=== PATIENT | female | born 1955 | race Caucasian/White ===

== ENCOUNTER 2016-12-09 08:00 | Day surgery (SDC) | payer BC ==
[~2016-12-09] VITALS: Ht 154.9 cm; Wt 72.9 kg
[~2016-12-09 08:00] MED LIST: LEVOFLOXACIN 500 mg IVPB 500 MG in D5W 100 ML IV ONE; LIDOCAINE 1% (10mg/ml) 2ml SDV INJ ONE; LISI-621 PO; LR 1,000 ML IV SCH; SIMV40TA5 PO
--- OUTSIDE RECORDS SUMMARY | 2016-12-09 08:03 | XMS REPORT | Summary of Care ---
Author Author Sue Simpson D.O. Organization Unknown Address [address], [place] [id number] Phone Unavailable Care Team Providers Care Welding Setter Name Role Phone Sue Simpson D.O. Unavailable Unavailable Sue Simpson PP Unavailable Unavailable Unavailable Functional Status Functional Status Health Issues* Name Dates Details Functional status health issues are not documented Status: Cognitive Status Health Issues* Name Dates Details Cognitive status health issues are not documented Status: Problems Name Dates Details Metatarsalgia (726.70, M77.40) Status: Active Impaired fasting glucose (790.21, R73.01) Status: Active Motion sickness (994.6, T75.3XXA) Status: Active Hypercholesterolemia (272.0, E78.0) Status: Active Seborrheic keratosis (702.19, L82.1) Status: Active Right knee sprain (844.9, S83.91XA) Status: Active Increased urinary frequency (788.41, R35.0) Status: Active Urinary tract infection (599.0, N39.0) Status: Active Medications Name Dates Details Simvastatin 40 MG Oral Tablet TAKE 1 TABLET DAILY. Quantity: 90 Sue Simpson.Sree* Started 07-Nov-2013 ActiveCiprofloxacin HCl - 250 MG Oral Tablet TAKE 1 TABLET EVERY 12 HOURS DAILY. * Quantity: 14 Refills: 0 Sue Simpson.Sia.* Started 29-May-2014 Active Allergies and Adverse Reactions Name Dates Details No Known Drug Allergies Status: Active Past Medical History Name Dates Details Metatarsalgia (726.70, M77.40) Status: Active Procedures Procedure Dates Details History of Complete Colonoscopy For Polyp Removal Procedures not documented Immunization Name Dates Details Diphtheria-Tetanus Toxoids 6.7-5 LFU/0.5ML Intramuscular Injectable Administered on:31-Oct-2013 Tdap (Adacel) Lot #: [id number] Administered on:31-Oct-2013 Social History Smoking Status* Unknown if ever smoked Vital Signs Date Test Result Details 28-Sep-2014 10:51 Temperature 97.5 f Status: Weight 151 lb Status: Body Mass Index Calculated 28.53 kg/m2 Status: Body Surface Area Calculated 1.68 m2 Status: Results Date Description Value Details 28-Sep-2014 10:14 Urinalysis, reflex to Micro and Culture ([facility]) 8016 pH 6.0 (Better) Range: 5.0-7.5 SP GRAVITY 1.015 (Better) Range: 1.010-1.030 APPEARANCE Cloudy (Abnormal) Range: Clear COLOR Yellow (Better) Range: Straw-Yellow PROTEIN Negative mg/dL (Better) Range: Negative-Trace GLUCOSE Negative mg/dL (Better) Range: Negative KETONES Negative mg/dL (Better) Range: Negative BILIRUBIN Negative (Better) Range: Negative BLOOD 1+ (Abnormal) Range: Negative UROBIL 0.2 EU/dL (Better) Range: 0.2-1.0 NITRITE Negative (Better) Range: Negative LEUKOCYTES 3+ (Abnormal) Range: Negative 11:19 Urine Microscopic UMIC WBC 21-50 /HPF (Abnormal) Range: 0-5 Comments: Specimen referred to Microbiology for Culture----- RBC 0-2 /HPF (Better) Range: 0-2 BACTERIA 1+ /HPF (Abnormal) Range: Negative-Trace EPITH 0-2 /HPF (Better) Range: 0-10 30-Sep-2014 08:10 URINE CULTURE 5010 *URINE CULTURE Microbiology results (Better) Comments: URINE SOURCE: Clean CatchCOLONY COUNT>100,000 cfu/ml. of a Gram Neg. Bacilli.RESULT: Escherichia coli (Isolate 1)Antibiotic Sensitivity Isolate 1 ---------Ampicillin <=8 SAmpicillin/Sulbactam <=8/4 SAugmentin <=8/4 SCefazolin <=8 SCefepime <=8 SCefoxitin <=8 SCeftazidime <=1 SCeftriaxone <=8 SCefuroxime <=4 SCiprofloxacin <=1 SErtapenem <=1 SGentamicin <=4 SImipenem <=4 SLevofloxacin <=2 SMeropenem <=4 SNitrofurantoin <=32 SPiperacillin/Tazobactam <=16 STetracycline <=4 STobramycin <=4 STrimeth/Sulfa < =2/38 SS=Sensitive, I=Intermediate, R=Resistant, ESBL=Extended spectrum beta- lactamase enzymes produced, [place]=Beta-lactamase positive, IB=Inducible Beta- lactamase enzymes known to be present.----- Plan of Care Planned Observations* Name Dates Details Planned Goals not documented Goal Planned Encounters* Appointment; Provider: Sue Simpson On 31-Oct-2014 08:45 * Appointment; Provider: Williams Alfaro On 17-Nov-2013 09:30 Instructions * Instructions not documented Encounters Appointment; Sue Simpson Encounter Diagnosis: Problem not documented On 28-Sep-2014 10:45 Appointment; Sue Simpson Encounter Diagnosis: Problem not documented On 19-Jun-2014 15:30 Appointment; Sue Simpson Encounter Diagnosis: Problem not documented On 29-May-2014 16:15 Appointment; Sue Simpson Encounter Diagnosis: Problem not documented On 09-May-2014 08:45 Appointment; Román Rose Encounter Diagnosis: Problem not documented On 09:00 Appointment; Román Rose Encounter Diagnosis: Problem not documented On 08:00 Appointment; Román Rose Encounter Diagnosis: Problem not documented On 09:00 Appointment; Román Rose Encounter Diagnosis: Problem not documented On 08:30 Appointment; Román Rose Encounter Diagnosis: Problem not documented On 11:30 Appointment; Román Rose Encounter Diagnosis: Problem not documented On 08:00 Appointment; Sue Simpson Encounter Diagnosis: Problem not documented On 09:15 Appointment; Seu Simpson Encounter Diagnosis: Problem not documented On 07-Feb-2014 08:30 Appointment; Williams Alfaro Encounter Diagnosis: Problem not documented On 23-Nov-2013 09:30 Appointment; Williams Alfaro Encounter Diagnosis: Problem not documented On 17-Nov-2013 08:30 Appointment; Dillan Garduno Encounter Diagnosis: Problem not documented On 17-Nov-2013 07:15 Appointment; Sue Simpson Encounter Diagnosis: Problem not documented On 07-Nov-2013 08:30 Appointment; Sue Simpson Encounter Diagnosis: Problem not documented On 31-Oct-2013 08:45 Appointment; Susy Neff Encounter Diagnosis: Problem not documented On 27-Oct-2013 08:50
--- OUTSIDE RECORDS SUMMARY | 2016-12-09 08:03 | XMS REPORT ---
Author Author GENERATED, SYSTEM Organization Unknown Address Unknown Phone Unavailable Care Team Providers Care Mold Shaker Name Role Phone DO NOLASCO ROBERT PP Unavailable Reason For Visit Chief Complaint LT EYE PAIN Social History Functional Status Vital Signs Results Problems Encounter Diagnosis No relevant problems exist. Encounters Encounter Diagnosis No relevant problems exist. Plan of Care Procedures No relevant procedures performed. Immunizations No immunizations administered or ordered. Hospital Course Hospital Discharge Instructions Allergies, Adverse Reactions, Alerts * No Latex Allergy. * No IV Contrast Allergy. * No Known Drug Allergies. Medication Medication reconciliation has not been performed.
--- OUTSIDE RECORDS SUMMARY | 2016-12-09 08:03 | XMS REPORT | Summary of Care ---
Author Author Sue Simpson D.O. Organization Unknown Address [address], [place] [id number] Phone Unavailable Care Team Providers Care Obstetrics/Gynecology Nurse Name Role Phone Sue Simpson D.O. 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 Acute cystitis without hematuria (595.0, N30.00) Status: Active Visit for periodic health examination (V70.0, Z00.00) Status: Active Non smoker (V49.89, Z78.9) Status: Active Visit for screening mammogram (V76.12, Z12.31) Status: Active Hypercholesterolemia (272.0, E78.00) Status: Active Impaired fasting glucose (790.21, R73.01) Status: Active Hypertension, essential, benign (401.1, I10) Status: Active Dysuria (788.1, R30.0) Status: Active Medications Name Dates Details Simvastatin 40 MG Oral Tablet Take one tablet by mouth daily Quantity: 90 Calvin D.O.Sue * Start 18-Aug-2016 Active Lisinopril 20 MG Oral Tablet TAKE 1 TABLET DAILY. * Quantity: 90 Refills: 0 Calvin D.O.Margarita. Román * Start 27-Oct-2016 Active Allergies and Adverse Reactions Name Dates Details No Known Drug Allergies (Allergy) Status: Active Procedures Procedure Dates Details History of Complete Colonoscopy For Polyp Removal Procedures not documented Immunization Name Dates Details Diphtheria-Tetanus Toxoids 6.7-5 LFU/0.5ML INJ on: 31-Oct-2013 Tdap (Adacel) Lot #: [id number] on: 31-Oct-2013 Family History Name Dates Details Family history of eye disorder (V19.19, Z83.518) Status: Active Name Dates Details No pertinent family history Status: Active Social History Name Dates Details - Status: Name Dates Details Never smoker Vital Signs Date Test Result Details 27-Oct-2016 09:58 BP Systolic 158 mm[Hg] Status: Comments: Location: ; Position: BP Diastolic 98 mm[Hg] Status: Comments: Location: ; Position: Heart Rate 98 /min Status: Comments: Location: ; Height 60.5 in Status: Weight 163 lb Status: Body Mass Index Calculated 31.31 kg/m2 Status: Body Surface Area Calculated 1.72 m2 Status: Results Date Description Value Details 24-Oct-2016 10:36 CBC w/ Auto Diff 7150 Comments: apt 10/27 Fastin hours WBC 6.2 K/uL Range: 4.5-11.0 RBC 4.20 mil/uL Range: 3.60-5.00 HGB 12.3 g/dL Range: 12.0-16.0 HCT 38.7 % Range: 36.0-48.0 MCV 92.1 fL Range: 80.0-99.0 MCH 29.2 pg Range: 27.3-32.5 MCHC 31.8 % (Below low threshold) Range: 32.0-36.0 RDW 14.0 % Range: 11.6-14.8 PLATELETS 236 K/uL Range: 150-400 MPV 6.3 fL Range: 6.0-11.0 %NEUTRO 52.5 % Range: 37.0-80.0 %LYMPHS 33.5 % Range: 13.0-50.0 %MONO 5.2 % Range: 0.0-12.0 %EOS 5.8 % Range: 0.0-7.0 %BASO 0.8 % Range: 0.0-2.5 %SHARIFA 2.3 % Range: 0.0-5.0 NEUTRO 3.3 K/uL Range: 2.0-6.9 LYMPHS 2.1 K/uL Range: 0.6-3.4 MONOS 0.3 K/uL Range: 0.0-0.9 EOS 0.4 K/uL Range: 0.0-0.7 BASO 0.1 K/uL Range: 0.0-0.2 10:44 Comprehensive Metabolic Panel 1212 Comments: Fastin hours SODIUM 141 mmol/L Range: 133-144 POTASSIUM 4.1 mmol/L Range: 3.5-5.1 CHLORIDE 105 mmol/L Range: 98-110 CARBON DIOXIDE 26.2 mmol/L Range: 23.0-33.0 ANION GAP 10 mmol/L Range: 6-16 BUN 13 mg/dL Range: 7-18 CREATININE, SERUM 0.92 mg/dL Range: 0.55-1.02 BUN:CREATININE RATIO 14 EST GFR, >60 ml/min Range: >60 EST GFR, NON-AFR EMIRATI >60 ml/min Range: >60 Comments: EST GFR is reported in ml/min per 1.73 m2 of body surface area. ----- GLUCOSE 105 mg/dL (Above high threshold) Range: 70-100 ALK PHOSPHATASE 53 U/L Range: 46-116 TOTAL BILIRUBIN 0.30 mg/dL Range: 0.20-1.00 AST 14 U/L Range: 8-35 ALT 21 U/L Range: 14-59 ALBUMIN 3.9 g/dL Range: 3.4-5.0 TOTAL PROTEIN 7.9 g/dL Range: 6.4-8.2 A/G RATIO 1.0 units Range: 1.0-1.8 CALCIUM 8.7 mg/dL Range: 8.5-10.1 10:44 LIPID PROFILE 1184 Comments: Fastin hours CHOLESTEROL 175 mg/dL Range: <200 TRIGLYCERIDES 75 mg/dL Range: 30-200 HDL Cholesterol 70 mg/dL Range: >39 NON HDL CHOLESTEROL 105 CARDIAC RSK FACTOR 2.5 units (Below low threshold) Range: 4.4-5.0 LDL - CALCULATED 90 mg/dL Range: 0-130 Plan of Care Name Dates Details Planned Observations Planned Goals not documented Planned Encounters Appointment; Provider: Schedule Radiology On 20-May-2017 19:00 Appointment; Provider: Sue Simpson D.O. On 27-Apr-2017 16:00 Appointment; Provider: Sue Simpson D.O. On 13-Nov-2016 10:15 Interventions Provided Medication Changes* Lisinopril 20 MG Oral Tablet - Start Instructions Name Dates Details Instructions not documented Encounters Appointment; Sue Simpson D.O. Encounter Diagnosis: Problem not documented On 02-Jun-2016 08:15 Appointment; Sue Simpson D.O. Encounter Diagnosis: Problem not documented On 12-May-2016 16:00 Appointment; Sue Simpson D.O. Encounter Diagnosis: Problem not documented On 28-Jan-2016 14:45 Appointment; Sue Simpson D.O. Encounter Diagnosis: Problem not documented On 21-Dec-2015 11:30 Appointment; Sue Simpson D.O. Encounter Diagnosis: Problem not documented On 05-Nov-2015 08:30 Appointment; Sue Simpson D.O. Encounter Diagnosis: Problem not documented On 02-Aug-2015 10:15 Appointment; Sue Simpson D.O. Encounter Diagnosis: Problem not documented On 03-May-2015 08:30 Appointment; Sue Simpson D.O. Encounter Diagnosis: Problem not documented On 31-Oct-2014 08:45
--- OUTSIDE RECORDS SUMMARY | 2016-12-09 08:03 | XMS REPORT | Summary of Care ---
Author Author Sue Simpson D.O. Organization Unknown Address [address], [place] [id number] Phone Unavailable Care Team Providers Care Road Equipment Operator Name Role Phone Sue Simpson D.O. Unavailable Unavailable Kenji Simpson PP Unavailable Unavailable Unavailable Functional Status Functional Status Health Issues* Name Dates Details Functional status health issues are not documented Status: Cognitive Status Health Issues* Name Dates Details Cognitive status health issues are not documented Status: Problems Name Dates Details Metatarsalgia (726.70, M77.40) Status: Active Motion sickness (994.6, T75.3XXA) Status: Active Seborrheic keratosis (702.19, L82.1) Status: Active Right knee sprain (844.9, S83.91XA) Status: Active Increased urinary frequency (788.41, R35.0) Status: Active Urinary tract infection (599.0, N39.0) Status: Active Hypercholesterolemia (272.0, E78.0) Status: Active Impaired fasting glucose (790.21, R73.01) Status: Active Medications Name Dates Details Simvastatin 40 MG Oral Tablet TAKE 1 TABLET DAILY. Quantity: 90 Sue Simpson.Sia.* Started 07-Nov-2013 ActiveTransderm-Scop 1 MG/3DAYS Transdermal Patch 72 Hour APPLY 1 PATCH EVERY 3 DAYS * Quantity: 1 Refills: 0 Sue Simpson.O.* Started 09-May-2014 Active4 Patch 72 Hour Box Allergies and Adverse Reactions Name Dates Details No Known Drug Allergies Status: Active Past Medical History Name Dates Details Metatarsalgia (726.70, M77.40) Status: Active Procedures Procedure Dates Details History of Complete Colonoscopy For Polyp Removal Procedures not documented Immunization Name Dates Details Diphtheria-Tetanus Toxoids 6.7-5 LFU/0.5ML Intramuscular Injectable Administered on:31-Oct-2013 Tdap (Adacel) Lot #: [id number] Administered on:31-Oct-2013 Social History Smoking Status* Unknown if ever smoked Vital Signs Date Test Result Details No Known Vitals to report Results Date Description Value Details Results not documented Plan of Care Planned Observations* Name Dates Details Planned Goals not documented Goal Planned Encounters* Appointment; Provider: Sue Simpson On 03-May-2015 08:30 * Appointment; Provider: Williams Alfaro On 17-Nov-2013 09:30 Instructions * Instructions not documented Encounters Appointment; Sue Simpson Encounter Diagnosis: Problem not documented On 31-Oct-2014 08:45 Appointment; Sue Simpson Encounter Diagnosis: Problem not documented On 28-Sep-2014 10:45 Appointment; Sue Simpson Encounter Diagnosis: Problem not documented On 19-Jun-2014 15:30 Appointment; Sue Simpson Encounter Diagnosis: Problem not documented On 29-May-2014 16:15 Appointment; Sue Simpson Diagnosis: Problem not documented On 09-May-2014 08:45 Appointment; Román Rose Encounter Diagnosis: Problem not documented On 09:00 Appointment; Román Rose Encounter Diagnosis: Problem not documented On 08:00 Appointment; Román Rose Encounter Diagnosis: Problem not documented On 09:00 Appointment; Román Rose Encounter Diagnosis: Problem not documented On 08:30 Appointment; Román Rose Encounter Diagnosis: Problem not documented On 11:30 Appointment; Román Rose Diagnosis: Problem not documented On 08:00 Appointment; Sue Simpson Encounter Diagnosis: Problem not documented On 09:15 Appointment; Sue Simpson Encounter Diagnosis: Problem not documented On 07-Feb-2014 08:30 Appointment; Williams Alfaro Encounter Diagnosis: Problem not documented On 23-Nov-2013 09:30 Appointment; Williams Alfaro Encounter Diagnosis: Problem not documented On 17-Nov-2013 08:30 Appointment; Dillan Gadruno Encounter Diagnosis: Problem not documented On 17-Nov-2013 07:15 Appointment; Sue Simpson Encounter Diagnosis: Problem not documented On 07-Nov-2013 08:30 Appointment; Sue Simpson Encounter Diagnosis: Problem not documented On 31-Oct-2013 08:45 Appointment; Susy Neff Encounter Diagnosis: Problem not documented On 27-Oct-2013 08:50
--- OUTSIDE RECORDS SUMMARY | 2016-12-09 08:03 | XMS REPORT | Summary of Care ---
Author Author Sue Simpson D.O. Organization Unknown Address [address] [place], [place] [id number] Phone Unavailable Care Team Providers Care Glue Maker Bone Name Role Phone Sue Simpson D.O. Unavailable [...] Urinary tract infection (599.0, N39.0) Status: Active Visit for screening mammogram (V76.12, Z12.31) Status: Active Impaired fasting glucose (790.21, R73.01) Status: Active Hypercholesterolemia (272.0, E78.0) Status: Active Insomnia (780.52, G47.00) Status: Active Tingling sensation (782.0, R20.2) Status: Active Medications Name Dates Details Simvastatin 40 MG Oral Tablet TAKE 1 TABLET DAILY. Quantity: 90 Sue Simpson.O.* Started 07-Nov-2013 ActiveZostavax 45217 UNT/0.65ML Subcutaneous Solution Reconstituted INJECT 0.65 ML Once * Quantity: 1 Refills: 0 Sue Simpson.Sia.* Started 03-May-2015 Active1 Solution Reconstituted Vial Allergies and Adverse Reactions Name Dates Details No Known Drug Allergies Status: Active Past Medical History Name Dates Details Metatarsalgia (726.70, M77.40) Status: Active Procedures Procedure Dates Details History of Complete Colonoscopy For Polyp Removal MAMMOGRAM-SCREENING Ordered:03-May-2015 Immunization Name Dates Details Diphtheria-Tetanus Toxoids 6.7-5 LFU/0.5ML Intramuscular Injectable Administered on:31-Oct-2013 Tdap (Adacel) Lot #: [id number] Administered on:31-Oct-2013 Family History Mother* Name Dates Details Family history of eye disorder (V19.19, Z83.518) Status: Active Father* Name Dates Details No pertinent family history Status: Active Social History Name Dates Details Smoking Status* Never smoker Vital Signs Date Test Result Details 03-May-2015 08:39 BP Systolic 136 mm[Hg] Status: BP Diastolic 84 mm[Hg] Status: Heart Rate 84 /min Status: Weight 154 lb Status: Body Mass Index Calculated 29.1 kg/m2 Status: Body Surface Area Calculated 1.69 m2 Status: Results Date Description Value Details 01-May-2015 10:34 LIPID PROFILE 1184 Comments: Fastin hours CHOLESTEROL 226 mg/dL (Above high threshold) Range: <200 TRIGLYCERIDES 66 mg/dL (Better) Range: 30-200 HDL Cholesterol 75 mg/dL (Better) Range: >39 NON HDL CHOLESTEROL 151 (Better) CARDIAC RSK FACTOR 3.0 units (Below low threshold) Range: 4.4-5.0 LDL - CALCULATED 138 mg/dL (Above high threshold) Range: 0-130 10:34 Comprehensive Metabolic Panel 1212 Comments: appointment with Dr Simpson 05/03/15 Fastin hours SODIUM 142 mmol/L (Better) Range: 133-144 POTASSIUM 4.2 mmol/L (Better) Range: 3.5-5.1 CHLORIDE 101 mmol/L (Better) Range: 98-110 CARBON DIOXIDE 27.2 mmol/L (Better) Range: 23.0-33.0 ANION GAP 14 mmol/L (Better) Range: 6-16 BUN 17 mg/dL (Better) Range: 7-18 CREATININE, SERUM 0.93 mg/dL (Better) Range: 0.55-1.02 Comments: Please note new reference ranges effective 2015.----- BUN:CREATININE RATIO 18 (Better) EST GFR, >60 ml/min (Better) Range: >60 EST GFR, NON-AFR [place] >60 ml/min (Better) Range: >60 Comments: EST GFR is reported in ml/min per 1.73 m2 of body surface area. For -[place], please multiple result by 1.2.----- GLUCOSE 98 mg/dL (Better) Range: 70-100 ALK PHOSPHATASE 51 U/L (Better) Range: 46-116 TOTAL BILIRUBIN 0.30 mg/dL (Better) Range: 0.20-1.00 AST 20 U/L (Better) Range: 8-35 ALT 29 U/L (Better) Range: 14-59 Comments: Please note new reference ranges. Effective 11/30/2014.----- ALBUMIN 4.3 g/dL (Better) Range: 3.4-5.0 TOTAL PROTEIN 7.4 g/dL (Better) Range: 6.4-8.2 A/G RATIO 1.4 units (Better) Range: 1.0-1.8 CALCIUM 9.1 mg/dL (Better) Range: 8.5-10.1 Plan of Care Planned Observations* Name Dates Details Planned Goals not documented Goal Planned Encounters* Appointment; Provider: Sue Simpson On 05-Nov-2015 08:30 * Appointment; Provider: Williams Alfaro On 17-Nov-2013 09:30 Instructions * Instructions not documented Encounters Appointment; Sue Simpson Diagnosis: Problem not documented On 03-May-2015 08:30 Appointment; Sue Simpson Encounter Diagnosis: Problem not documented On 31-Oct-2014 08:45 Appointment; Sue Simpson Diagnosis: Problem not documented On 28-Sep-2014 10:45 Appointment; Sue Simpson Diagnosis: Problem not documented On 19-Jun-2014 15:30 Appointment; Sue Simpson Encounter Diagnosis: Problem not documented On 29-May-2014 16:15 Appointment; Sue Simpson Encounter Diagnosis: Problem not documented On 09-May-2014 08:45 Appointment; Román Rose Diagnosis: Problem not documented On 09:00 Appointment; Román Rose Encounter Diagnosis: Problem not documented On 08:00 Appointment; Román Rose Diagnosis: Problem not documented On 09:00 Appointment; [...]
--- OUTSIDE RECORDS SUMMARY | 2016-12-09 08:03 | XMS REPORT | Continuity of Care Document ---
Author Author [facility] Organization [facility] Address Unknown Phone Unavailable Allergies Medications Problems Procedures Results Encounters ACCT No. Visit Date/Time Discharge Status Pt. Type Provider Facility Loc./Unit Complaint [id number] 02/02/2016 19:16:00 2015 05:15:27 DIS Emergency MICHELLE LAMBERT LT EYE PAIN
--- OUTSIDE RECORDS SUMMARY | 2016-12-09 08:03 | XMS REPORT | Summary of Care ---
Author Author Sue Simpson D.O. Organization Unknown Address [address] [place], [place] [address] Phone Unavailable Care Team Providers Care Data Analytics Analyst Name Role Phone Sue Simpson D.O. Unavailable [...] for screening mammogram (V76.12, Z12.31) Status: Active Insomnia (780.52, G47.00) Status: Active Tingling sensation (782.0, R20.2) Status: Active Benign paroxysmal positional vertigo, unspecified laterality (386.11, H81.10) Status: Active Hypercholesterolemia (272.0, E78.0) Status: Active Impaired fasting glucose (790.21, R73.01) Status: Active Medications Name Dates Details Simvastatin 40 MG Oral Tablet TAKE 1 TABLET DAILY. Quantity: 90 Sue Simpson.Sree* Started 07-Nov-2013 Active Allergies and Adverse Reactions Name Dates Details No Known Drug Allergies Status: Active Past Medical History Name Dates Details Metatarsalgia (726.70, M77.40) Status: Active Procedures Procedure Dates Details History of Complete Colonoscopy For Polyp Removal Procedures not documented Immunization Name Dates Details Diphtheria-Tetanus Toxoids 6.7-5 LFU/0.5ML Intramuscular Injectable Administered on:31-Oct-2013 Tdap (Adacel) Lot #: [id number] Administered on:31-Oct-2013 Family History Mother* Name Dates Details Family history of eye disorder (V19.19, Z83.518) Status: Active Father* Name Dates Details No pertinent family history Status: Active Social History Name Dates Details Smoking Status* Never smoker Vital Signs Date Test Result Details 05-Nov-2015 08:38 BP Systolic 138 mm[Hg] Status: BP Diastolic 74 mm[Hg] Status: Heart Rate 76 /min Status: Weight 156 lb Status: Body Mass Index Calculated 29.48 kg/m2 Status: Body Surface Area Calculated 1.7 m2 Status: Results Date Description Value Details 02-Nov-2015 10:14 CBC w/ Auto Diff 7150 Comments: Dr Simpson Appt 11-05-15 Fastin hours WBC 6.6 K/uL (Better) Range: 4.5-11.0 RBC 4.51 mil/uL (Better) Range: 3.60-5.00 HGB 13.7 g/dL (Better) Range: 12.0-16.0 HCT 41.1 % (Better) Range: 36.0-48.0 MCV 91.1 fL (Better) Range: 80.0-99.0 MCH 30.4 pg (Better) Range: 27.3-32.5 MCHC 33.4 % (Better) Range: 32.0-36.0 RDW 13.3 % (Better) Range: 11.6-14.8 PLATELETS 232 K/uL (Better) Range: 150-400 MPV 7.7 fL (Better) Range: 6.0-11.0 %NEUTRO 45.3 % (Better) Range: 37.0-80.0 %LYMPHS 38.6 % (Better) Range: 13.0-50.0 %MONO 7.1 % (Better) Range: 0.0-12.0 %EOS 5.2 % (Better) Range: 0.0-7.0 %BASO 1.0 % (Better) Range: 0.0-2.5 %SHARIFA 2.8 % (Better) Range: 0.0-5.0 NEUTRO 3.0 K/uL (Better) Range: 2.0-6.9 LYMPHS 2.6 K/uL (Better) Range: 0.6-3.4 MONOS 0.5 K/uL (Better) Range: 0.0-0.9 EOS 0.4 K/uL (Better) Range: 0.0-0.7 BASO 0.1 K/uL (Better) Range: 0.0-0.2 10:18 Comprehensive Metabolic Panel 1212 Comments: Fastin hours SODIUM 142 mmol/L (Better) Range: 133-144 POTASSIUM 3.8 mmol/L (Better) Range: 3.5-5.1 CHLORIDE 105 mmol/L (Better) Range: 98-110 CARBON DIOXIDE 26.4 mmol/L (Better) Range: 23.0-33.0 ANION GAP 11 mmol/L (Better) Range: 6-16 BUN 10 mg/dL (Better) Range: 7-18 CREATININE, SERUM 0.83 mg/dL (Better) Range: 0.55-1.02 Comments: Please note new reference ranges effective 2015.----- BUN:CREATININE RATIO 12 (Better) EST GFR, >60 ml/min (Better) Range: >60 EST GFR, NON-AFR [place]DI[place] >60 ml/min (Better) Range: >60 Comments: EST GFR is reported in ml/min per 1.73 m2 of body surface area. For -Guamanian, please multiple result by 1.2.----- GLUCOSE 85 mg/dL (Better) Range: 70-100 ALK PHOSPHATASE 44 U/L (Below low threshold) Range: 46-116 TOTAL BILIRUBIN 0.30 mg/dL (Better) Range: 0.20-1.00 AST 21 U/L (Better) Range: 8-35 ALT 26 U/L (Better) Range: 14-59 Comments: Please note new reference ranges. Effective 11/30/2014.----- ALBUMIN 4.2 g/dL (Better) Range: 3.4-5.0 TOTAL PROTEIN 7.7 g/dL (Better) Range: 6.4-8.2 A/G RATIO 1.2 units (Better) Range: 1.0-1.8 CALCIUM 9.0 mg/dL (Better) Range: 8.5-10.1 10:18 LIPID PROFILE 1184 Comments: Fastin hours CHOLESTEROL 200 mg/dL (Above high threshold) Range: <200 TRIGLYCERIDES 60 mg/dL (Better) Range: 30-200 HDL Cholesterol 68 mg/dL (Better) Range: >39 NON HDL CHOLESTEROL 132 (Better) CARDIAC RSK FACTOR 2.9 units (Below low threshold) Range: 4.4-5.0 LDL - CALCULATED 120 mg/dL (Better) Range: 0-130 Plan of Care Planned Observations* Name Dates Details Planned Goals not documented Goal Planned Encounters* Appointment; Provider: Sue Simpson On 12-May-2016 16:00 * Appointment; Provider: Schedule Radiology On 11-May-2015 09:50 * Appointment; Provider: Williams Alfaro On 17-Nov-2013 09:30 Instructions * Instructions not documented Encounters Appointment; Sue Simpson Diagnosis: Problem not documented On 05-Nov-2015 08:30 Appointment; Sue Simpson Encounter Diagnosis: Problem not documented On 02-Aug-2015 10:15 Appointment; Sue Simpson Diagnosis: Problem not documented [...]
--- OUTSIDE RECORDS SUMMARY | 2016-12-09 08:03 | XMS REPORT | Summary of Care ---
Author Author Marcel Hunter M.D. Organization Unknown Address [address] [place] [address] [place] [address] Phone Unavailable Care Team Providers Care Comb Winder Name Role Phone Sue Simpson D.O. Unavailable Unavailable Marcel Hunter M.D. Unavailable Unavailable Kenji Simpson Unavailable Unavailable Unavailable [...] Status: Active Dysuria (788.1, R30.0) Status: Active Urinary urgency (788.63, R39.15) Status: Active Increased frequency of urination (788.41, R35.0) Status: Active Left ureteral stone (592.1, N20.1) Status: Active Microhematuria (599.72, R31.29) Status: Active Medications Name Dates Details Simvastatin 40 MG Oral Tablet Take one tablet by mouth daily Quantity: 90 Calvin D.O.Sue * Start 18-Aug-2016 Active Lisinopril 20 MG Oral Tablet TAKE 1 TABLET DAILY. * Quantity: 90 Refills: 0 Calvin D.O.Sue * Start 27-Oct-2016 Active Allergies and Adverse Reactions Name Dates Details No Known Drug Allergies (Allergy) Status: Active Procedures Procedure Dates Details History of Complete Colonoscopy For Polyp Removal History of Hysterectomy Urinalysis, reflex to Micro and Culture ([facility]) 8016 Ordered: Oct-2016 BASIC METABOLIC PROFILE 1210 Ordered: 21-Nov-2016 CBC w/ Auto Diff 7150 Ordered: 21-Nov-2016 Hepatitis C ( HCV) Antibody [id number] Ordered: 31-Oct-2016 CBC w/ Auto Diff 7150 Ordered: 31-Oct-2016 Comprehensive Metabolic Panel 1212 Ordered: 31-Oct-2016 Immunization Name Dates Details Diphtheria-Tetanus Toxoids 6.7-5 LFU/0.5ML INJ on: 31-Oct-2013 Tdap (Adacel) Lot #: [id number] on: 31-Oct-2013 Zoster (Zostavax) on: 12-Nov-2016 Zostavax 00645 UNT/0.65ML Subcutaneous Solution Reconstituted Lot #: [id number] on: 12-Nov-2016 Family History Name Dates Details Family history of eye disorder (V19.19, Z83.518) Status: Active Name Dates Details No pertinent family history Status: Active Social History Name Dates Details - Status: Name Dates Details Never smoker Vital Signs Date Test Result Details 20-Nov-2016 16:03 BP Systolic 154 mm[Hg] Status: Comments: Location: ; Position: BP Diastolic 94 mm[Hg] Status: Comments: Location: ; Position: Heart Rate 82 /min Status: Comments: Location: ; 12-Nov-2016 10:47 BP Systolic 146 mm[Hg] Status: Comments: Location: ; Position: BP Diastolic 82 mm[Hg] Status: Comments: Location: ; Position: Heart Rate 88 /min Status: Comments: Location: ; Weight 165 lb Status: Body Mass Index Calculated 31.69 kg/m2 Status: Body Surface Area Calculated 1.73 m2 Status: Results Date Description Value Details 12-Nov-2016 11:37 Urinalysis, reflex to Micro and Culture ([facility]) 8012 Comments: Testing performed by [facility], [address] [place] [address] pH 6.0 Range: 5.0-7.5 SP GRAVITY 1.010 Range: 1.010-1.030 APPEARANCE Clear Range: Clear COLOR Yellow Range: Straw-Yellow PROTEIN Negative mg/dL Range: Negative-Trace GLUCOSE Negative mg/dL Range: Negative KETONES Negative mg/dL Range: Negative BILIRUBIN Negative Range: Negative BLOOD Negative Range: Negative UROBIL 0.2 EU/dL Range: 0.2-1.0 NITRITE Negative Range: Negative LEUKOCYTES Negative Range: Negative 01-Dec-2016 16:27 CT AB/ PEL WITHOUT IV CONTRAST (FOR KIDNEY STONE) Comments : Exam Date: 12/01/2016 15:49Dictation Date: 12/01/2016 16:27 XC ABD PEL W/O (RENAL STONE) Plan of Care Name Dates Details Planned Observations Planned Goals not documented Planned Encounters Appointment; Provider: Schedule Radiology On 20-May-2017 19:00 Appointment; Provider: Sue Simpson D.O. On 27-Apr-2017 16:00 Instructions Name Dates Details Instructions not documented Encounters Appointment; Marcel Hunter M.D. Encounter Diagnosis: Problem not documented On 20-Nov-2016 16:00 Appointment; Sue Simpson D.O. Encounter Diagnosis: Problem not documented On 12-Nov-2016 10:30 Appointment; Sue Simpson D.O. Encounter Diagnosis: Problem not documented On 27-Oct-2016 09:45 Appointment; Sue Simpson D.O. Encounter Diagnosis: Problem not documented On 02-Jun-2016 08:15 Appointment; Sue Simspon D.O. Encounter Diagnosis: Problem not documented On [...]
--- OUTSIDE RECORDS SUMMARY | 2016-12-09 08:03 | XMS REPORT | Summary of Care ---
Author Author Sue Simpson D.O. Organization Unknown Address [address], [place] [id number] Phone Unavailable Care Team Providers Care Real Time Operator Name Role Phone Sue Simpson D.O. 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 * Start 18-Aug-2016 Active Allergies and Adverse Reactions Name Dates Details No Known Drug Allergies (Allergy) Status: Active Procedures Procedure Dates Details History of Complete Colonoscopy For Polyp Removal Procedures not documented Immunization Name Dates Details Diphtheria-Tetanus Toxoids 6.7-5 LFU/0.5ML INJ on: 31-Oct-2013 Tdap (Adacel) Lot #: [id number] on: 31-Oct-2013 Family History Name Dates Details Family history of eye disorder (V19.19, Z83.518) Status: Active Name Dates Details No pertinent family history Status: Active Social History Name Dates Details - Status: Name Dates Details Never smoker Vital Signs Date Test Result Details No Known Vitals to report Results Date Description Value Details Results not documented Plan of Care Name Dates Details Planned Observations Comprehensive Metabolic Panel 1212 On 16-Oct-2016 Intent CBC w/ Auto Diff 7150 On 16-Oct-2016 Intent LIPID PROFILE 1184 On 16-Oct-2016 Intent Planned Goals not documented Planned Encounters Appointment; Provider: Schedule Radiology On 20-May-2017 19:00 Appointment; Provider: Sue Simpson D.O. On 27-Oct-2016 09:45 Appointment; Provider: Schedule Radiology On 19-May-2016 16:30 Interventions Provided Labs/Procedures/Imaging* MAMMOGRAM-SCREENING; Done: May 20 2016 9:14AM Instructions Name Dates Details Instructions not documented [...]
--- OUTSIDE RECORDS SUMMARY | 2016-12-09 08:03 | XMS REPORT | Summary of Care ---
Author Author Sue Simpson D.O. Organization Unknown Address [address], [place] [id number] Phone Unavailable Care Team Providers Care Printing Screen Assembler Name Role Phone Sue Simpson D.O. 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 Quantity: 14 Calvin Escobedo.Sue * Start 28-Jan-2016 Active Simvastatin 40 MG Oral Tablet TAKE 1 TABLET DAILY. * Quantity: 90 Refills: 3 Calvin Dawkins.Sia.Sue * Start 07-Nov-2013 Active Allergies and Adverse Reactions Name Dates Details No Known Drug Allergies (Allergy) Status: Active Procedures Procedure Dates Details History of Complete Colonoscopy For Polyp Removal Procedures not documented Immunization Name Dates Details Diphtheria-Tetanus Toxoids 6.7-5 LFU/0.5ML INJ on: 31-Oct-2013 Tdap (Adacel) Lot #: [id number] on: 31-Oct-2013 Family History Name Dates Details [...] of Care Name Dates Details Planned Observations BASIC METABOLIC PROFILE 1210 On 01-May-2016 Intent THYROID STIM. HORMONE 3602 On 01-May-2016 Intent FREE T4 3604 On 01-May-2016 Intent Planned Goals not documented Planned Encounters Appointment; Provider: Sue Simpson D.O. On 12-May-2016 16:00 Instructions Name Dates Details Instructions not documented Encounters Appointment; Sue Simpson D.O. Encounter Diagnosis: Problem not documented On 02-Aug-2015 10:15 Appointment; Sue Simpson D.O. Encounter Diagnosis: Problem not documented On 03-May-2015 08:30 Appointment; Sue Simpson D.O. Encounter Diagnosis: Problem not documented On 31-Oct-2014 08:45 Appointment; Sue Simpson D.O. Encounter Diagnosis: Problem not documented On 28-Sep-2014 10:45 Appointment; Sue Simpson D.O. Encounter Diagnosis: Problem not documented On 19-Jun-2014 15:30 Appointment; Sue Simpson D.O. Encounter Diagnosis: Problem not documented On 29-May-2014 16:15 Appointment; Sue Simpson D.O. Encounter Diagnosis: Problem not documented On 09-May-2014 08:45
--- OUTSIDE RECORDS SUMMARY | 2016-12-09 08:04 | XMS REPORT | Summary of Care ---
Author Author Sue Simpson D.O. Organization Unknown Address [address], [place] [id number] Phone Unavailable Care Team Providers Care Industrial Mechanic Name Role Phone Sue Simpson D.O. 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 Quantity: 90 Sue Simpson.Sree* Started 07-Nov-2013 Active Allergies and Adverse Reactions Name Dates Details No Known Drug Allergies Status: Active Procedures Procedure Dates Details History of Complete Colonoscopy For Polyp Removal Procedures not documented Immunization Name Dates Details Diphtheria-Tetanus Toxoids 6.7-5 LFU/0.5ML Intramuscular Injectable Administered on:31-Oct-2013 Tdap (Adacel) Lot #: [id number] Administered on:31-Oct-2013 Family History Mother* Name Dates [...] Auto Diff 7150 Comments: Dr Simpson Appt 2-15-16 Fastin hours WBC 6.6 K/uL (Better) Range: [...] ml/min (Better) Range: >60 EST GFR, NON-AFR [place] >60 ml/min (Better) Range: >60 Comments: EST GFR is reported in ml/min per 1.73 m2 of body surface area. For -Angolan, please multiple result by 1.2.----- GLUCOSE 85 [...] Simpson On 12-May-2016 16:00 * Appointment; Provider: Marcelo Radiology On 11-May-2015 09:50 * Appointment; Provider: Williams Alfaro On 17-Nov-2013 09:30 Instructions * Instructions not documented Encounters Appointment; Sue Simpson Encounter Diagnosis: Problem not documented On 05-Nov-2015 08:30 Appointment; Sue Simpson Encounter Diagnosis: Problem not documented On 02-Aug-2015 10:15 Appointment; Sue Simpson Encounter Diagnosis: Problem not documented On 03-May-2015 [...]
--- OUTSIDE RECORDS SUMMARY | 2016-12-09 08:04 | XMS REPORT | Summary of Care ---
Author Author Sue Simpson D.O. Organization Unknown Address [address], [place] [address] Phone Unavailable Care Team Providers Care Filling Carrier Name Role Phone Sue Simpson D.O. Unavailable [...] vertigo, unspecified laterality (386.11, H81.10) Status: Active Medications Name Dates Details Simvastatin 40 MG Oral Tablet TAKE 1 TABLET DAILY. Quantity: 90 Sue Simpson.O.* Started 07-Nov-2013 ActiveMeclizine HCl - 25 MG Oral Tablet TAKE 1 TABLET 4 TIMES DAILY NEEDED FOR DIZZINESS. * Quantity: 30 Refills: 1 Sue Simpson.O.* Started 02-Aug-2015 Active Allergies and Adverse Reactions Name Dates Details No Known Drug Allergies Status: Active Past Medical History Name Dates Details Metatarsalgia (726.70, M77.40) Status: Active Procedures Procedure Dates Details History of Complete Colonoscopy For Polyp Removal Procedures not documented Immunization Name Dates Details Diphtheria-Tetanus Toxoids 6.7-5 LFU/0.5ML Intramuscular Injectable Administered on:31-Oct-2013 Tdap (Adacel) Lot #: [id number] Administered on:31-Oct-2013 Family History Mother* Name Dates Details Family history of eye disorder (V19.19, Z83.518) Status: Active Father* Name Dates Details No pertinent family history Status: Active Social History Name Dates Details Smoking Status* Never smoker Vital Signs Date Test Result Details 02-Aug-2015 10:23 BP Systolic 130 mm[Hg] Status: BP Diastolic 72 mm[Hg] Status: Heart Rate 78 /min Status: Weight 156.1875 lb Status: Body Mass Index Calculated 29.51 kg/m2 Status: Body Surface Area Calculated 1.7 m2 Status: Results Date Description Value Details Results not documented Plan of Care Planned Observations* Name Dates Details Planned Goals not documented Goal Planned Encounters* Appointment; Provider: Sue Simpson On 05-Nov-2015 08:30 * Appointment; Provider: Schedule Radiology On 11-May-2015 09:50 * Appointment; Provider: Williams Alfaro On 17-Nov-2013 09:30 Instructions * Instructions not documented Encounters Appointment; Sue Simpson Encounter Diagnosis: Problem not documented On 02-Aug-2015 10:15 Appointment; Sue Simpson Diagnosis: Problem not documented On 03-May-2015 08:30 Appointment; Sue Simpson Diagnosis: Problem not documented On 31-Oct-2014 08:45 Appointment; Sue Simpson Encounter Diagnosis: Problem not documented On 28-Sep-2014 10:45 Appointment; Sue Simpson Encounter Diagnosis: Problem not documented On 19-Jun-2014 15:30 Appointment; Sue Simpson Encounter Diagnosis: Problem not documented On 29-May-2014 16:15 Appointment; Sue Simpson Encounter Diagnosis: Problem not documented On 09-May-2014 08:45 Appointment; Román Rose Diagnosis: Problem not documented On 09:00 Appointment; Román Rose Diagnosis: Problem not documented [...]
--- OUTSIDE RECORDS SUMMARY | 2016-12-09 08:04 | XMS REPORT | Summary of Care ---
Author Author Provider, Outside Organization Unknown Address Unknown Phone Unavailable Care Team Providers Care Sewer Separation Designer Name Role Phone Sue Simpson D.O. Unavailable [...] cystitis without hematuria (595.0, N30.00) Status: Active Non smoker (V49.89, Z78.9) Status: Active Hypercholesterolemia (272.0, E78.0) Status: Active Impaired fasting glucose (790.21, R73.01) Status: Active Medications Name Dates Details Simvastatin 40 MG Oral Tablet TAKE 1 TABLET DAILY. Quantity: 90 Sue Simpson D.O. * Start 07-Nov-2013 Active Allergies and Adverse Reactions Name Dates Details No Known Drug Allergies (Allergy) Status: Active Procedures Procedure Dates Details History of Complete Colonoscopy For Polyp Removal Procedures not documented Immunization Name Dates Details Diphtheria-Tetanus Toxoids 6.7-5 LFU/0.5ML INJ on: 31-Oct-2013 Tdap (Adacel) Lot #: [id number] on: 31-Oct-2013 Family History Name Dates Details Family history of eye disorder (V19.19, Z83.518) Status: Active Name Dates Details No pertinent family history Status: Active Social History Name Dates Details - Status: Name Dates Details Never smoker Vital Signs Date Test Result Details 12-May-2016 15:53 BP Systolic 150 mm[Hg] Status: Comments: Location: ; Position: BP Diastolic 88 mm[Hg] Status: Comments: Location: ; Position: Heart Rate 78 /min Status: Comments: Location: ; Weight 159 lb Status: Body Mass Index Calculated 30.04 kg/m2 Status: Body Surface Area Calculated 1.71 m2 Status: Results Date Description Value Details 07-May-2016 10:38 BASIC METABOLIC PROFILE 1210 Comments: 05/12/16 Fastin hours SODIUM 140 mmol/L Range: 133-144 POTASSIUM 4.3 mmol/L Range: 3.5-5.1 CHLORIDE 104 mmol/L Range: 98-110 CARBON DIOXIDE 24.6 mmol/L Range: 23.0-33.0 ANION GAP 11 mmol/L Range: 6-16 BUN 15 mg/dL Range: 7-18 CREATININE, SERUM 0.83 mg/dL Range: 0.55-1.02 Comments: Please note new reference ranges effective 2015.----- EST GFR, >60 ml/min Range: >60 EST GFR, NON-AFR [place] >60 ml/min Range: >60 Comments: EST GFR is reported in ml/min per 1.73 m2 of body surface area. For -Ugandan, please multiple result by 1.2.----- BUN:CREATININE RATIO 18 GLUCOSE 89 mg/dL Range: 70-100 CALCIUM 9.2 mg/dL Range: 8.5-10.1 10:50 THYROID STIM. HORMONE 3602 Comments: Fastin hours THYROID STIM. HORMONE 4.641 uIU/mL Range: 0.550-4.780 Comments: No established reference ranges for infants and children <2 years of age----- 10:50 FREE T4 3604 Comments: Fastin hours FREE T4 0.88 ng/dL Range: 0.80-1.67 Plan of Care Name Dates Details Planned Observations Planned Goals not documented Planned Encounters Appointment; Provider: Schedule Radiology On 11-May-2015 09:50 Appointment; Provider: Williams Alfaro M.D.|SARAH Grossman|SARAH Klein, On 17-Nov-2013 09:30 Instructions Name Dates Details Instructions not documented [...] Encounter Diagnosis: Problem not documented On 29-May-2014 16:15"
--- OUTSIDE RECORDS SUMMARY | 2016-12-09 08:04 | XMS REPORT | Summary of Care ---
Author Author Sue Simpson D.O. Organization Unknown Address [address], [place] [id number] Phone Unavailable Care Team Providers Care Flanging Operator Name Role Phone Sue Simpson D.O. [...] cystitis without hematuria (595.0, N30.00) Status: Active Dysuria (788.1, R30.0) Status: Active Medications Name Dates Details Simvastatin 40 MG Oral Tablet TAKE 1 TABLET DAILY. Quantity: 90 Sue Simpson D.O.* Started 07-Nov-2013 ActiveCiprofloxacin HCl - 500 MG Oral Tablet TAKE 1 TABLET EVERY 12 HOURS DAILY. * Quantity: 6 Refills: 0 Sue Simpson D.O.* Started 21-Dec-2015 ActivePhenazopyridine HCl - 200 MG Oral Tablet TAKE 1 TABLET 3 TIMES DAILY AFTER MEALS NEEDED * Quantity: 6 Refills: 0 Sue Simpson D.O.* Started 21-Dec-2015 Active Allergies and Adverse Reactions Name Dates Details No Known Drug Allergies Status: Active Procedures Procedure Dates Details History of Complete Colonoscopy For Polyp Removal BASIC METABOLIC PROFILE 1210 Ordered:06-Nov-2015 THYROID STIM. HORMONE 3602 Ordered:06-Nov-2015 FREE T4 3604 Ordered:06-Nov-2015 Immunization Name Dates Details Diphtheria-Tetanus Toxoids 6.7-5 LFU/0.5ML Intramuscular Injectable Administered on:31-Oct-2013 Tdap (Adacel) Lot #: [id number] Administered on:31-Oct-2013 Family History Mother* Name Dates Details Family history of eye disorder (V19.19, Z83.518) Status: Active Father* Name Dates Details No pertinent family history Status: Active Social History Name Dates Details Smoking Status* Never smoker Vital Signs Date Test Result Details 21-Dec-2015 11:40 Temperature 97.7 f Status: Weight 156 lb Status: Body Mass Index Calculated 29.48 kg/m2 Status: Body Surface Area Calculated 1.7 m2 Status: Results Date Description Value Details 21-Dec-2015 11:43 Urinalysis, reflex to Micro and Culture ([facility]) 8016 pH 6.0 (Better) Range: 5.0-7.5 SP GRAVITY 1.010 (Better) Range: 1.010-1.030 APPEARANCE Clear (Better) Range: Clear COLOR Straw (Better) Range: Straw-Yellow PROTEIN 15 mg/dL (Abnormal) Range: Negative-Trace GLUCOSE Negative mg/dL (Better) Range: Negative KETONES Negative mg/dL (Better) Range: Negative BILIRUBIN Negative (Better) Range: Negative BLOOD 2+ (Abnormal) Range: Negative UROBIL 0.2 EU/dL (Better) Range: 0.2-1.0 NITRITE Negative (Better) Range: Negative LEUKOCYTES +/- (Abnormal) Range: Negative 13:14 Urine Microscopic UMIC WBC 6-10 /HPF (Abnormal) Range: 0-5 Comments: Specimen referred to Microbiology for Culture----- RBC 0-2 /HPF (Better) Range: 0-2 Plan of Care Planned Observations* Name Dates Details Planned Goals not documented Goal Planned Encounters* Appointment; Provider: Sue Simpson On 12-May-2016 16:00 * Appointment; Provider: Schedule Radiology On 11-May-2015 09:50 * Appointment; Provider: Williams Alfaro On 17-Nov-2013 09:30 Instructions * Instructions not documented Encounters Appointment; Sue Simpson Encounter Diagnosis: Problem not documented On 21-Dec-2015 11:30 Appointment; Sue Simpson Encounter Diagnosis: Problem not [...]
--- OUTSIDE RECORDS SUMMARY | 2016-12-09 08:04 | XMS REPORT | Summary of Care ---
Author Author Sue Smipson D.O. Organization Unknown Address [address], [place] [id number] Phone Unavailable Care Team Providers Care Manager Project Management Name Role Phone Sue Simpson D.O. Unavailable [...] N30.00) Status: Active Medications Name Dates Details Simvastatin 40 MG Oral Tablet TAKE 1 TABLET DAILY. Quantity: 90 Sue Simpson.O.* Started 07-Nov-2013 ActiveCiprofloxacin HCl - 500 MG Oral Tablet TAKE 1 TABLET EVERY 12 HOURS DAILY. * Quantity: 14 Refills: 0 Sue Simpson.O.* Started 28-Jan-2016 Active Allergies and Adverse Reactions Name Dates Details No Known Drug Allergies Status: Active Procedures Procedure Dates Details History of Complete Colonoscopy For Polyp Removal Urinalysis, reflex to Micro and Culture ([facility]) 8016 Ordered:Jan-2016 Immunization Name Dates Details Diphtheria-Tetanus Toxoids 6.7-5 LFU/0.5ML Intramuscular Injectable Administered on:31-Oct-2013 Tdap (Adacel) Lot #: [id number] Administered on:31-Oct-2013 Family History Mother* Name Dates Details Family history of eye disorder (V19.19, Z83.518) Status: Active Father* Name Dates Details No pertinent family history Status: Active Social History Name Dates Details Smoking Status* Never smoker Vital Signs Date Test Result Details 28-Jan-2016 14:30 BP Systolic 118 mm[Hg] Status: BP Diastolic 70 mm[Hg] Status: Temperature 97.2 f Status: Heart Rate 68 /min Status: Weight 157 lb Status: Body Mass Index Calculated 29.67 kg/m2 Status: Body Surface Area Calculated 1.7 m2 Status: Results Date Description Value Details 28-Jan-2016 14:24 Urinalysis, reflex to Micro and Culture ([facility]) 8016 pH 6.0 (Better) Range: 5.0-7.5 SP GRAVITY 1.005 (Abnormal) Range: 1.010-1.030 APPEARANCE Clear (Better) Range: Clear COLOR Straw (Better) Range: Straw-Yellow PROTEIN Negative mg/dL (Better) Range: Negative-Trace GLUCOSE Negative mg/dL (Better) Range: Negative KETONES Negative mg/dL (Better) Range: Negative BILIRUBIN Negative (Better) Range: Negative BLOOD +/- (Abnormal) Range: Negative UROBIL 0.2 EU/dL (Better) Range: 0.2-1.0 NITRITE Negative (Better) Range: Negative LEUKOCYTES 2+ (Abnormal) Range: Negative 15:22 Urine Microscopic UMIC WBC 6-10 /HPF (Abnormal) Range: 0-5 Comments: Specimen referred to Microbiology for Culture----- RBC 0-2 /HPF (Better) Range: 0-2 EPITH 0-2 /HPF (Better) Range: 0-10 30-Jan-2016 13:44 URINE CULTURE [id number] Comments: BuzzVote performed at: [facility], [address] [place] [address], [phone], Rigging Man: Marcel Arizmendi D.O., MPHQuest Collection Date/Time: [id number] Results Received Date/Time: [id number] Reported Date/Time: [id number] performed at: [facility], [address] [place] [address], [id number], Rigging Man: Marcel Arizmendi D.O., MPHQuest Collection Date/Time: [id number] Results Received Date/Time: [id number] Reported Date/Time: [id number] CULTURE, URINE, ROUTINE SEE NOTE (Abnormal) Comments: CULTURE, URINE, ROUTINE MICRO NUMBER: [id number] TEST STATUS: FINAL SPECIMEN SOURCE : URINE SPECIMEN QUALITY: ADEQUATE RESULT: 50,000-100,000 CFU/ mL of Escherichia coli COMMENT: Additional organism(s) less than 10, 000 CFU/mL isolated. These organisms, commonly found on external and internal genitalia, are considered colonizers. No further testing performed. E.coli INT TAMMY AMOX/CLAVULANATE S <=2 AMPICILLIN S 4 AMP/ SULBACTAM S <=2 CEFAZOLIN NR <=4 1 CEFEPIME S <=1 CEFTRIAXONE S <=1 CIPROFLOXACIN S <=0.25 ERTAPENEM S <=0.5 GENTAMICIN S <=1 IMIPENEM S <=0.25 LEVOFLOXACIN S < =0.12 NITROFURANTOIN S <=16 PIP/TAZOBACTAM S <=4 TOBRAMYCIN S <=1 TRIMETHOPRIM/SULFA S <=20S= Susceptible I=Intermediate R=Resistant *=Not TestedNR=Not Reported NN=See Therapy CommentsTHERAPY COMMENTS Note 1: ORAL therapy: A cefazolin TAMMY of < 32 predicts susceptibility to the oral agents cefaclor, cefdinir, cefpodoxime, cefprozil, cefuroxime, cephalexin, and loracarbef when used for therapy of uncomplicated UTIs due to E. coli, K. pneumoniae, and P. mirabilis. PARENTERAL therapy: A cefazolin TAMMY of > 8 indicates resistance to parenteral cefazolin. An alternate test method must be performed to to confirm susceptibility to parenteral cefazolin.[KS]----- Plan of Care Planned Observations* Name Dates Details Planned Goals not documented Goal Planned Encounters* Appointment; Provider: Sue Simpson On 12-May-2016 16:00 * Appointment; Provider: Marcelo Radiology On 11-May-2015 09:50 * Appointment; Provider: Williams Alfaro On 17-Nov-2013 09:30 Instructions * Instructions not documented Encounters Appointment; Sue Simpson Encounter Diagnosis: Problem not documented On 28-Jan-2016 14:45 Appointment; Sue Simpson Encounter Diagnosis: Problem not [...]
--- OUTSIDE RECORDS SUMMARY | 2016-12-09 08:04 | XMS REPORT | Summary of Care ---
Author Author Sue Simpson D.O. Organization Unknown Address [address], [place] [phone] Phone Unavailable Care Team Providers Care Wiping Cloth Cutter Name Role Phone Sue Simpson D.O. Unavailable [...] Injectable Administered on:31-Oct-2013 Tdap (Adacel) Lot #: [id number] Administered on:31-Oct-2013 Family History Mother* Name Dates [...] Simpson On 05-Nov-2015 08:30 * Appointment; Provider: Marcelo Radiology On 11-May-2015 [...] Román Rose Diagnosis: Problem not documented On 08:30 Appointment; [...]
--- OUTSIDE RECORDS SUMMARY | 2016-12-09 08:04 | XMS REPORT | Summary of Care ---
Author Author Sue Simpson D.O. Organization Unknown Address [address], [place] [phone] Phone Unavailable Care Team Providers Care Dry Kiln Worker Name Role Phone Sue Simpson D.O. Unavailable [...] Quantity: 90 Sue Simpson D.O.* Started 07-Nov-2013 Active Allergies and Adverse Reactions Name Dates Details No Known Drug Allergies Status: Active Procedures Procedure Dates Details History of Complete Colonoscopy For Polyp Removal Procedures not documented Immunization Name Dates Details Diphtheria-Tetanus Toxoids 6.7-5 LFU/0.5ML Intramuscular Injectable Administered on:31-Oct-2013 Tdap (Adacel) Lot #: [id number] Administered on:31-Oct-2013 Family History Mother* Name Dates Details Family history of eye disorder (V19.19, Z83.518) Status: Active Father* Name Dates Details No pertinent family history Status: Active Social History Name Dates Details Smoking Status* Never smoker Vital Signs Date Test Result Details No Known Vitals to report Results Date Description Value Details 28-Jan-2016 14:24 Urinalysis, reflex to Micro and Culture ([facility]) 8016 pH 6.0 (Better) Range: 5.0-7.5 SP [...] Range: Negative LEUKOCYTES 2+ (Abnormal) Range: Negative Plan of Care Planned Observations* Name Dates [...]
--- OUTSIDE RECORDS SUMMARY | 2016-12-09 08:04 | XMS REPORT | Summary of Care ---
Author Author Sue Simpson D.O. Organization Unknown Address [address], [place] [phone] Phone Unavailable Care Team Providers Care General Manager In Training Name Role Phone Sue Simpson D.O. Unavailable [...] HORMONE 3602 Ordered:06-Nov-2015 FREE T4 3604 Ordered:06-Nov-2015 Urinalysis, reflex to Micro and Culture ([facility]) 8016 Ordered: Immunization Name Dates Details Diphtheria-Tetanus Toxoids 6.7-5 LFU/0.5ML Intramuscular Injectable Administered on:31-Oct-2013 Tdap (Adacel) Lot #: [id number] Administered on:31-Oct-2013 Family History Mother* Name Dates [...] On 12-May-2016 16:00 * Appointment; Provider: Marcelo Leung On 11-May-2015 09:50 * Appointment; Provider: Williams [...] Problem not documented On 08:00 Appointment; Román Roes Encounter Diagnosis: Problem not documented On 09:00 Appointment; Román Rose Encounter Diagnosis: Problem not documented On 08:30 Appointment; Román Rose Encounter Diagnosis: Problem not documented On 11:30 Appointment; Román Rose Encounter Diagnosis: Problem not documented On 08:00 Appointment; Sue Simpson Encounter Diagnosis: Problem not documented On 09:15 Appointment; Sue Simpson Diagnosis: Problem not documented On 07-Feb-2014 08:30
--- OUTSIDE RECORDS SUMMARY | 2016-12-09 08:04 | XMS REPORT | Summary of Care ---
Author Author Sue Simpson D.O. Organization Unknown Address [address], [place] [phone] Phone Unavailable Care Team Providers Care Developmental Services Worker Name Role Phone Sue Simpson D.O. [...] INJ on: 31-Oct-2013 Tdap (Adacel) Lot #: [id number] on: 31-Oct-2013 Family History Name Dates Details [...] >60 ml/min Range: >60 EST GFR, NON-AFR AZERBAIJANI >60 ml/min Range: >60 Comments: EST GFR is reported in ml/min per 1.73 m2 of body surface area. For -Honduran, please multiple result by 1.2.----- BUN:CREATININE RATIO [...] Encounters Appointment; Provider: Sue Simpson D.O. On 27-Oct-2016 15:30 Appointment; Provider: Sue Simpson D.O. On 02-Jun-2016 08:15 Instructions Name Dates Details Instructions not documented [...]
--- OUTSIDE RECORDS SUMMARY | 2016-12-09 08:04 | XMS REPORT | Summary of Care ---
Author Author Sue Simpson D.O. Organization Unknown Address [address], [place] [phone] Phone Unavailable Care Team Providers Care Manager Endoscopy Name Role Phone Sue Simpson D.O. Unavailable [...] tablet by mouth daily Quantity: 90 Calvin D.O. R. Román * Start 18-Aug-2016 Active Lisinopril 20 MG Oral Tablet TAKE 1 TABLET DAILY. * Quantity: 90 Refills: 0 Calvin D.O. R. Román * Start 27-Oct-2016 Active Zostavax [id number] UNT/0.65ML Subcutaneous Solution Reconstituted INJECT 0.65 ML Once * Quantity: 1 Refills: 0 Calvin D.O.Margarita. Román * Start 12-Nov-2016 Active 1 Solution Reconstituted Vial Allergies and Adverse Reactions Name Dates Details No Known Drug Allergies (Allergy) Status: Active Procedures Procedure Dates Details History of Complete Colonoscopy For Polyp Removal Comprehensive Metabolic Panel 1212 Ordered: 31-Oct-2016 CBC w/ Auto Diff 7150 Ordered: 31-Oct-2016 Hepatitis C ( HCV) Antibody [id number] Ordered: 31-Oct-2016 Immunization Name Dates Details Diphtheria-Tetanus Toxoids 6.7-5 LFU/0.5ML INJ on: 31-Oct-2013 Tdap (Adacel) Lot #: [id number] on: 31-Oct-2013 Zoster (Zostavax) on: 12-Nov-2016 Zostavax 55021 UNT/0.65ML Subcutaneous Solution Reconstituted Lot #: [id number] on: 12-Nov-2016 Family History Name Dates Details Family history of eye disorder (V19.19, Z83.518) Status: Active Name Dates Details No pertinent family history Status: Active Social History Name Dates Details - Status: Name Dates Details Never smoker Vital Signs Date Test Result Details 12-Nov-2016 10:47 BP Systolic 146 mm[Hg] Status: Comments: Location: ; Position: BP Diastolic 82 mm[Hg] Status: Comments: Location: ; Position: Heart Rate 88 /min Status: Comments: Location: ; Weight 165 lb Status: Body Mass Index Calculated 31.69 kg/m2 Status: Body Surface Area Calculated 1.73 m2 Status: 27-Oct-2016 09:58 BP Systolic 158 mm[Hg] Status: [...] >60 ml/min Range: >60 EST GFR, NON-AFR NEPALESE >60 ml/min Range: >60 Comments: EST GFR [...] Provider: Sue Simpson D.O. On 27-Apr-2017 16:00 Interventions Provided Medication Changes* Zostavax [id number] UNT/0.65ML Subcutaneous Solution Reconstituted - Start Medications/Immunizations Administered* Zostavax 26050 UNT/0.65ML Subcutaneous Solution Reconstituted; Done: 12 Nov 2016 Instructions Name Dates Details Instructions not documented [...]
--- OUTSIDE RECORDS SUMMARY | 2016-12-09 08:04 | XMS REPORT | Summary of Care ---
Author Author Marcel Hunter M.D. Unknown Address [address] [place] [address] [place] [address] Phone Unavailable Care Team Providers Care Home Care Specialist Name Role Phone Sue Simpson D.O. Unavailable [...] Hypertension, essential, benign (401.1, I10) Status: Active Microhematuria (599.72, R31.29) Status: Active Dysuria (788.1, R30.0) Status: Active Urinary urgency (788.63, R39.15) Status: Active Increased frequency of urination (788.41, R35.0) Status: Active Medications Name Dates Details Simvastatin [...] Colonoscopy For Polyp Removal History of Hysterectomy Comprehensive Metabolic Panel 1212 Ordered: 31-Oct-2016 CBC w/ Auto Diff 7150 Ordered: 31-Oct-2016 Hepatitis C ( HCV) Antibody 364228 Ordered: 31-Oct-2016 Urinalysis, reflex to Micro and Culture ([facility]) 8017 Ordered: Oct-2016 BASIC METABOLIC PROFILE 1210 Ordered: 21-Nov-2016 CBC w/ Auto Diff 7150 Ordered: 21-Nov-2016 Immunization Name Dates Details Diphtheria-Tetanus Toxoids 6.7-5 LFU/0.5ML INJ on: 31-Oct-2013 Tdap (Adacel) Lot #: [id number] on: 31-Oct-2013 Zoster (Zostavax) on: 12-Nov-2016 Zostavax 61769 UNT/0.65ML Subcutaneous Solution Reconstituted Lot #: [id number] on: 12-Nov-2016 Family History Name Dates Details [...] 11:37 Urinalysis, reflex to Micro and Culture ([facility]) 8016 Comments: Testing performed by [facility], [address] [place] [address] pH 6.0 Range: 5.0-7.5 SP GRAVITY 1.010 [...] Simpson D.O. On 27-Apr-2017 16:00 Appointment; Provider: Marcel Hunter M.D. On 08-Dec-2016 10:45 Instructions Name Dates Details Instructions not documented [...]
--- OUTSIDE RECORDS SUMMARY | 2016-12-09 08:04 | XMS REPORT | Summary of Care ---
Author Author Marcel Hunter M.D. Organization Unknown Address [address] [place] [address] [place] [address] Phone Unavailable Care Team Providers Care Crm Marketing Executive Name Role Phone Sue Simpson D.O. Unavailable [...] Hysterectomy Urinalysis, reflex to Micro and Culture ([facility]) 8016 Ordered: Oct-2016 Hepatitis C ( HCV) Antibody [id number] Ordered: 31-Oct-2016 CBC w/ Auto Diff 7150 Ordered: 31-Oct-2016 Comprehensive Metabolic Panel 1212 Ordered: 31-Oct-2016 Immunization Name Dates Details Diphtheria-Tetanus Toxoids 6.7-5 LFU/0.5ML INJ on: 31-Oct-2013 Tdap (Adacel) Lot #: [id number] on: 31-Oct-2013 Zoster (Zostavax) on: 12-Nov-2016 Zostavax 99696 UNT/0.65ML Subcutaneous Solution Reconstituted Lot #: [id number] on: 12-Nov-2016 Family History Name Dates Details [...] >60 ml/min Range: >60 EST GFR, NON-AFR PERUVIAN >60 ml/min Range: >60 Comments: EST GFR [...] LDL - CALCULATED 90 mg/dL Range: 0-130 12-Nov-2016 11:37 Urinalysis, reflex to Micro and Culture ([facility]) 2015 Comments: Testing performed by [facility], [address] [place] [address] pH 6.0 Range: 5.0-7.5 SP GRAVITY 1.010 Range: 1.010-1.030 APPEARANCE Clear Range: Clear COLOR Yellow Range: Straw-Yellow PROTEIN Negative mg/dL Range: Negative-Trace GLUCOSE Negative mg/dL Range: Negative KETONES Negative mg/dL Range: Negative BILIRUBIN Negative Range: Negative BLOOD Negative Range: Negative UROBIL 0.2 EU/dL Range: 0.2-1.0 NITRITE Negative Range: Negative LEUKOCYTES Negative Range: Negative Plan of Care Name Dates Details Planned [...]
--- OUTSIDE RECORDS SUMMARY | 2016-12-09 08:05 | XMS REPORT | Summary of Care ---
Author Author Sue Simpson D.O. Organization Unknown Address [address], [place] [phone] Phone Unavailable Care Team Providers Care Shipping Checker Name Role Phone Sue Simpson D.O. Unavailable [...] Injectable Administered on:31-Oct-2013 Tdap (Adacel) Lot #: [id number] Administered on:31-Oct-2013 Social History Smoking Status* Unknown if ever smoked Vital Signs Date Test Result Details 31-Oct-2014 09:00 BP Systolic 124 mm[Hg] Status: BP Diastolic 72 mm[Hg] Status: Heart Rate 74 /min Status: Weight 154 lb Status: Body Mass Index Calculated 29.1 kg/m2 Status: Body Surface Area Calculated 1.69 m2 Status: Results Date Description Value Details 26-Oct-2014 10:29 LIPID PROFILE 1184 Comments: Items were attached to this order: C12 Fastin hours CHOLESTEROL 212 mg/dL (Above high threshold) Range: <200 TRIGLYCERIDES 76 mg/dL (Better) Range: 30-200 HDL Cholesterol 75 mg/dL (Better) Range: >39 NON HDL CHOLESTEROL 137 (Better) CARDIAC RSK FACTOR 2.8 units (Below low threshold) Range: 4.4-5.0 LDL - CALCULATED 122 mg/dL (Better) Range: 0-130 10:29 Comprehensive Metabolic Panel 1212 Comments: Items were attached to this order: C12 Fastin hours SODIUM 142 mmol/L (Better) Range: 133-144 POTASSIUM 3.8 mmol/L (Better) Range: 3.5-5.1 CHLORIDE 106 mmol/L (Better) Range: 98-110 CARBON DIOXIDE 28.9 mmol/L (Better) Range: 23.0-33.0 ANION GAP 7 mmol/L (Better) Range: 6-16 BUN 15 mg/dL (Better) Range: 7-18 CREATININE, SERUM 0.74 mg/dL (Better) Range: 0.43-1.13 BUN:CREATININE RATIO 20 (Better) EST GFR, >60 ml/min (Better) Range: >60 EST GFR, NON-AFR ECUADOREAN >60 ml/min (Better) Range: >60 Comments: EST GFR is reported in ml/min per 1.73 m2 of body surface area. For -Ecuadorean, please multiple result by 1.2.----- GLUCOSE 93 mg/dL (Better) Range: 70-100 ALK PHOSPHATASE 56 U/L (Better) Range: 46-116 Comments: Please Note: New Reference Range effective 2013.----- TOTAL BILIRUBIN 0.20 mg/dL (Better) Range: 0.20-1.00 AST 27 U/L (Better) Range: 8-35 ALT 35 U/L (Better) Range: 12-78 ALBUMIN 4.0 g/dL (Better) Range: 3.4-5.0 TOTAL PROTEIN 7.7 g/dL (Better) Range: 6.4-8.2 A/G RATIO 1.1 units (Better) Range: 1.0-1.8 CALCIUM 9.2 mg/dL (Better) Range: 8.5-10.1 Plan of Care [...]
[2016-12-09 08:18] VITALS: BP 159/76; PULSE 81; RESP 12; TEMP 98; O2SAT 92; Ht 154.9 cm; Wt 72.9 kg
[2016-12-09 08:24] LABS: BASOPHILS # (AUTO) 0.1 T/MM3 (0-0.2); BASOPHILS % (AUTO) 0.7 % (0-2); EOSINOPHILS # (AUTO) 0.2 T/MM3 (0-0.5); HCT - HEMATOCRIT 39.1 % (36-46); HGB - HEMOGLOBIN 12.4 GM/DL (12-16); IMMATURE GRANULOCYTE # (AUTO) 0.01 T/MM3 (0.00-0.03); IMMATURE GRANULOCYTE % (AUTO) 0.1 % (0.0-0.5); LYMPHOCYTES # (AUTO) 2.3 T/MM3 (1-4.8); LYMPHOCYTES % (AUTO) 23.9 % (23-45); MEAN CORPUSCULAR HGB 28.6 UUG (26-34); MEAN CORPUSCULAR HGB CONC(MCHC 31.7 GM/DL (31-37); MEAN CORPUSCULAR VOLUME 90.3 UM3 (80-100); MEAN PLATELET VOLUME 8.8 UM3 (9.4-12.4); MONOCYTES # (AUTO) 0.6 T/MM3 (0-0.8); MONOCYTES % (AUTO) 6.5 % (0-9.0); NEUTROPHILS #(AUTO)-ABSOLUTE 6.5 T/MM3 (1.8-7.7); NEUTROPHILS % (AUTO) 66.8 % (33-66); RED BLOOD COUNT 4.33 M/MM3 (4.00-5.20); WBC - WHITE BLOOD COUNT 9.8 T/MM3 (4.5-11.0)
[2016-12-09 08:36] LABS: ANION GAP 11 MEQ/L (5-15); BUN/CREATININE RATIO 19 RATIO (6-26); CALCIUM 9.5 MG/DL (8.4-10.2); CHLORIDE 107 MEQ/L (98-107); CO2 - CARBON DIOXIDE 26 MEQ/L (22-30); CREATININE 0.9 MG/DL (0.7-1.2); GLOMERULAR FILTRATION RATE 63; GLUCOSE 127 MG/DL (65-110); POTASSIUM 4.8 MEQ/L (3.6-5); SODIUM 144 MEQ/L (134-144)
[2016-12-09] MEDS ORDERED: IOHEXOL 300 MG/ML 50ml INJECTION ONE ×2 (09:45)
--- NOTE | 2016-12-09 09:46 | ANESPREOP ---
Anesthesia Record Date and Time DATE: 12/09/16 TIME: 09:44 Pre-Op Diagnosis left ureteral stone Proposed Surgical Procedure CYSTO, L. RETROGRADE, URETEROSCOPY, STONE BASKET, STENT INSERT. NPO since: mn Allergies: Coded Allergies: No Known Allergies (Unverified , 12/08/16) Ht/Wt/BMI Height: 5 ' 1.00 " Weight: 72.900 kg BMI: 30.4 kg/m2 Vital Signs Date Time Temp Pulse Resp B/P Pulse Ox O2 Delivery O2 Flow Rate FiO2 12/09/16 08:18 98.0 81 12 159/76 92 Room Air Medications Inpatient Medications Current Medications Medications (Trade) Dose Ordered Sig/Keysha Start Time Stop Time Status Last Admin Dose Admin Lactated Ringer's (Lactated Ringers) 1,000 ml @ 30 mls/hr Q24H 12/09/16 07:00 12/09/16 09:36 30 MLS/HR Lisinopril (Lisinopril) 20 Mg Tablet, 20 MG PO DAILY, (Reported) Last Taken: on 12/08/16 0800 Simvastatin (Simvastatin) 40 Mg Tablet, 40 MG PO HS, (Reported) Take 1 tablet, by mouth, 1 time a day (at BEDTIME). Last Taken: on 12/07/16 2300 Currently on Beta Sander: No Medical/Surgical History Anesthesia PMH: Reports: *Hypertension (TAKES MEDS), Denies: Anesthesia Reactions (NO AIRWAY ISSUES, N&V), Cancer, Clotting Problems, Glaucoma, Malignant Hyperthermia, Renal Disease, Sleep Apnea Smoking Status: Never smoker Has pt. smoked today?: No Use Chewing Tobacco?: No Second Hand Exposure: No Substance Use Type: does not use Alcohol Intake: none HX of Last Menstrual Period: HYST. Past Surgical History Orthopedic Surgeries: Abdominal Surgeries: Genitourinary Surgeries: Cardiac Surgeries: Endocrine Surgeries: Reproductive Surgeries: Yes - C SECTION X2. hyst Neurological Surgeries: Ear Surgeries: Nose Surgeries: Throat Surgeries: Other Surgeries: Yes - COLONOSCOPY Anesthesia Adverse Reactions: FOUND nausea and vomiting Family Hx of Anesthesia Advers: none Pertinent Findings Laboratory Tests 12/09/16 08:18 EKG Rhythm: Sinus Rhythm Physical Exam Respiratory: Bilat breath sounds equal, Lungs clear Cardiovascular: FOUND Regular rate, rhythm, FOUND No murmur Airway Assessment Mallampati Score: I TMD: 3 Fingerbreadths Neck Extension: Good Overall Assessment: No Airway Concerns ASA: 2 Plan Anesthesia Plan: TIVA, LMA, GETA Discussion Discussed risks/options/alternatives of anesthesia and questions answered. Patient consents. Nursing pain assessment noted. Attestation Statement Prior to the delivery of any anesthetic medication, I examined the patient, developed the plan, obtained the patient's consent and discussed the risk and benefits of the procedure with the patient/guardian. DERECK PATEL PARTY PLAN SALES HOST/HOSTESS Dec 09, 2016 09:46
[2016-12-09] MEDS ORDERED: GENTAMICIN 80 MG/2 ML INJECTION ONE ×2 (09:49)
[2016-12-09] MEDS ORDERED: MIDAZOLAM 2mg/2ml INJECTION ONE (10:18)
[2016-12-09] MEDS ORDERED: FENTANYL 250mcg/5ml INJECTION ONE (10:19)
[2016-12-09] MEDS ORDERED: KETAMINE 500mg/10ml INJECTION ONE (10:19)
[2016-12-09] MEDS ORDERED: LIDOCAINE 2% (20mg/ml) 5ml PF SDV ONE (10:20)
[2016-12-09] MEDS ORDERED: PROPOFOL 500mg 50 ML IV ONE (10:20)
[2016-12-09] MEDS ORDERED: LIDOCAINE JELLY 2% 30ml TUBE ONE (10:23)
[2016-12-09] MEDS ORDERED: DEXAMETHASONE 4mg/ml - 1ml INJECTION ONE (10:27)
[2016-12-09] MEDS ORDERED: ONDANSETRON 4mg/2ml INJECTION ONE (10:27)
[2016-12-09 11:05] VITALS: BP 118/67; PULSE 98; RESP 16; TEMP 97.5; O2SAT 94
[2016-12-09] MEDS ORDERED: LR 1,000 ML IV SCH (11:05)
[2016-12-09 11:10] VITALS: BP 130/72; PULSE 97; RESP 16; O2SAT 96
[2016-12-09] MEDS ORDERED: KETOROLAC 30mg/ml INJECTION IV PRN (11:15)
[2016-12-09] MEDS ORDERED: HYDROCODONE/APAP 5 mg/325 mg TABLET PO PRN (11:15)
[2016-12-09] MEDS ORDERED: ONDANSETRON 4mg/2ml INJECTION IV PRN (11:15)
[2016-12-09] MEDS ORDERED: TRAMADOL 50 MG TABLET PO PRN (11:15)
[2016-12-09] MEDS ORDERED: UROGESIC-BLUE TABLET PO PRN (11:15)
[2016-12-09 11:25] VITALS: BP 149/83; PULSE 74; RESP 16; O2SAT 98
[2016-12-09] MEDS ORDERED: METH1TAB54 PO (11:27)
[2016-12-09] MEDS ORDERED: CEPH500C2 PO (11:27)
[2016-12-09] MEDS ORDERED: TRAM50TA53 PO (11:27)
[2016-12-09 11:40] VITALS: BP 135/73; PULSE 73; RESP 16; O2SAT 98
--- NOTE | 2016-12-09 11:43 | ANESPO ---
Post-Op Note Date 12/09/16 Time: 11:40 Status Pt Participated in Evaluation: Pt participated in person Vital Signs Date Time Temp Pulse Resp B/P Pulse Ox O2 Delivery O2 Flow Rate FiO2 12/09/16 11:10 97 16 130/72 96 Room Air 12/09/16 11:05 97.5 Respiratory Function: Airway patent Mental Status: Alert/oriented Pain Level Intensity: 0 Hydration: Taking po fluids Complications during Recovery None apparent Follow-Up Instructions Instructions Per Surgeon DERECK PATEL CRNA Dec 09, 2016 11:43
--- NOTE | 2016-12-09 11:50 | DI ---
Indication: ITS.REASON: LT URETERAL STONE PROCEDURE: RF RETROGRADE PYELOGRAM LEFT: Encounter: Initial Comparison: None Findings: 21 fluoroscopic spot images are submitted for interpretation. Images show retrograde injection of contrast into the left renal collecting system with a normal appearance of the calyces. Guidewire and angioplasty device is deployed at the left ureterovesicular junction. Injection of contrast into the left ureter shows mild to moderate hydroureter with a filling defect distally. A left-sided double-J stent is then placed which projects in appropriate position. Impression: Fluoroscopy as above. Fluoroscopy time is 160.1 seconds. Fluoroscopy dose is 3620 mRad. .
[2016-12-09 11:55] VITALS: BP 147/78; PULSE 74; RESP 16; O2SAT 98
--- NOTE | 2016-12-09 15:54 | OPNOTEF ---
DATE OF OPERATION 12/09/2016 PREOPERATIVE DIAGNOSIS Left ureteral stone. POSTOPERATIVE DIAGNOSIS Left ureteral stone with left ureteral stricture and hydronephrosis. OPERATION PERFORMED Cystoscopy and left retrograde pyelogram with left ureteral stricture dilation and ureteroscopic stone basket with stent insertion #6 Wallisian x 22 cm. SURGEON Marcel Hunter MD ANESTHESIA TIVA INDICATION Mrs. Mcintyre is a 61-year-old woman with a two year history of intermittent urinary urgency and frequency and dysuria as well as abdominal/flank pain on the left side. CT scan was finally done and it showed a stone in the left distal ureter with dilated ureter. Patient was brought in to have stone retrieved. DESCRIPTION OF PROCEDURE Patient was taken to the cystoscopy suite and under intravenous general anesthesia patient was placed in the dorsal lithotomy position and prepped and draped in the usual fashion for cystoscopic procedure. A #21 Wallisian rigid cystoscope was inserted into the bladder. Bladder showed moderate trabeculation with evidence of very mild chronic cystitis. No bladder tumor, foreign body or stone was seen. Ureteral orifices are normal in location and contour bilaterally. Left ureteral orifice was cannulated with a #5 Wallisian open-ended ureteral catheter and a small amount of contrast mixed with gentamicin was injected under fluoroscopy. It showed a filling defect at the expected location for the stone seen on the CT scan in the left distal ureter. Proximal to the stone had widely dilated ureter. Distal to the stone was a very narrow segment of ureter. Ureteral catheter was removed and replaced it with a 0.035 gauge guidewire. Over this guidewire, a #15 Wallisian balloon dilator was loaded under fluoroscopic guidance. The stricture was dilated. The guidewire and the balloon dilator were removed along with the cystoscope. A #7 Wallisian semi-rigid ureteroscope was then inserted and placed into the left distal ureter and advanced towards the kidney. There was an irregular shaped stone. A 2.2 Wallisian Olympus basket was used to engage the stone under direct vision and retrieve it successfully. Ureteroscope was removed and replaced it with a cystoscope again. A #5 Wallisian open-ended ureteral catheter was then advanced into the left renal pelvis under fluoroscopic guidance and pull-out retrograde pyelogram was performed. It showed dilated ureter and renal pelvis. A guidewire was left in and the ureteral catheter removed. Over this guidewire, a #6 Wallisian x 22 cm double-pigtail stent was placed under fluoroscopic guidance and its position confirmed fluoroscopically and also cystoscopically. Bladder was emptied out and the cystoscope removed. Patient was then taken to the recovery room in stable condition. RAMY
== END 2016-12-09 12:30 | disposition home or self-care (01) ==
LOC: SCU 08:00
PROVIDERS: ATTEND Specialist
DX: N13.2 Hydronephrosis with renal and ureteral calculous obstruction (principal); I10 Essential (primary) hypertension; E78.00 Pure hypercholesterolemia, unspecified; Z79.899 Other long term (current) drug therapy; Z90.710 Acquired absence of both cervix and uterus; Z86.010 Personal history of colon polyps
CPT/HCPCS: 36415; 52332; 52352; 74420; 80048; 82365; 85025; J1100; J1580; J1956; J2250; J2405; J2704; J3010; J7060; J7120; Q9967